=== PATIENT | male | born 1950 ===

== ENCOUNTER → 2018-11-01 21:31 | Outpatient (REF) | payer MEDICARE, MEDICAID, SELFPAY | LOC: LAB 21:31 | PROVIDERS: Visit Provider Family Medicine | DX: F11.20 Opioid dependence, uncomplicated (principal) ==

== ENCOUNTER → 2018-11-26 21:16 | Outpatient (ROUT) | payer MEDICARE, MEDICAID, SELFPAY | PROVIDERS: Visit Provider Family Medicine | DX: F11.20 Opioid dependence, uncomplicated (principal); R11.2 Nausea with vomiting, unspecified | CPT/HCPCS: 80356; 80361; 80365 ==